=== PATIENT | female | born 1970 | race Two or more races ===

== ENCOUNTER 2016-11-13 08:02 | Emergency (ER) | payer SELFPAY ==
[2016-11-13 08:17] VITALS: BP 170/95; PULSE 82; TEMP 97.7; BMI 29.0
--- NOTE | 2016-11-13 08:20 | EDPRACDOC ---
- General Information Chief Complaint: Flu-Like Symptoms Stated Complaint: COUGH/CONGESTION Time Seen by Provider: 11/13/16 08:18 Mode Of Arrival: Walk Home Medications: Home Medications Azithromycin [Zithromax] 0 mg PO DAILY #6 tablet 10/27/13 Hydrocodone Bit/Homatropine [Hycodan Syrup] 5 ml PO Q6 PRN #120 syrup 10/27/13 Ketorolac Tromethamine [Toradol] 10 mg PO Q6H PRN #20 tab 10/27/13 Levothyroxine Sodium [Synthroid] 50 mcg PO DAILY 12/03/14 Albuterol Sulfate [Proventil Hfa] 2 puff INH Q4-6H #1 inh 12/05/14 Montelukast Sodium [Singulair] 10 mg PO HS #30 tablet 12/05/14 Nabumetone [Relafen] 500 mg PO BID #60 tab 12/05/14 Prednisone [Deltasone, Orasone] 10 mg PO DAILY #40 tablet 12/05/14 Guaifenesin/Codeine Phosphate [Cheratussin AC Syrup] 240 ml PO Q4-6H #5 liquid 12/11/14 Guaifenesin/Pseudoephedrne HCl [Mucinex D ER Tablet] 1 each PO BID #20 tab.sr.12h 12/11/14 Promethazine [Phenergan] 25 mg PO Q6-8H PRN #20 tab 12/11/14 Albuterol Sulfate [Proventil Hfa] 1 - 2 puff INH Q4H PRN 09/11/15 Beclomethasone Dipropionate [Q Tito 80] 2 puff INH BID 09/11/15 Ibuprofen Tablet [Motrin] 800 mg PO TID 09/11/15 Ketorolac Tromethamine [Toradol] 10 mg PO TID PRN #10 tab 09/11/15 Montelukast Sodium [Singulair] 10 mg PO DAILY 09/11/15 Oxycodone Immediate Release [Oxycodone Immediate Release Tablet] 5 mg PO Q4H PRN #10 tab 09/11/15 Azithromycin [Zithromax] 0 mg PO DAILY #6 tablet 11/13/16 Guaifenesin-Codeine [Robitussin AC] 10 ml PO Q6-8H 5 Days 11/13/16 Allergies/Adverse Reactions: Allergies Allergy/AdvReac Type Severity Reaction Status Date / Time Penicillins Allergy Difficulty Verified 12/11/14 03:00 Breathing - History of Present Illness Symptoms Started: 5 days Symptoms: Reports: Cough Recent Medications: Reports: None Relevant History Of: Reports: None Shortness of Breath: Mild Cough Description: Reports: Non-productive Ear Symptoms: Reports: None Associated Signs and Symptoms: Reports: Cough ED Past Medical History - History Reviewed Yes Nurses notes reviewed and agree except as marked - Patient Medical History Neurological History: Reports: Seizures Cardiac History: Reports: Syncope Respiratory History: Reports: Asthma, Pneumonia (5 times in 1 year. Uses inhalers.) Psychological History: Reports: Anxiety. Denies: Substance Use Disorder Systemic History: Reports: Hypothyroidism - Family Medical History Reports: Respiratory Disorders (son with asthma) - Social Medical History Smoking Status: Never smoker Social History: Denies: Substance Use Disorder EDM Review of Systems - Review of Systems ROS Negative Except as Marked: Yes All systems reviewed and were negative except as marked - Physical Exam Constitutional: Alert (Awake), No apparent distress Oriented to: Time, Person, Place Last recorded Vital Signs: Last Vital Signs Temp 97.7 F 11/13/16 08:12 Pulse 82 11/13/16 08:12 Resp 18 11/13/16 08:12 BP 170/95 11/13/16 08:12 Pulse Ox 97 11/13/16 08:12 Oxygen Pulse Oxygen Saturation 97 O2 Device Oxygen Flow Rate Fraction of Inspired Oxygen ( FIO2) - HEENT Head: Normal ( normocephalic) Eye Exam: Normal (PERRL, EOMI, Sclera white) Oropharynx: Normal (Pharynx:Moist without exudate,Gums-no swelling) ENT EAC: Normal TMJ: Normal Nose: No Symptoms Reported (septum midline) Neck: Normal (FROM, trachea at midline) - Respiratory/Cardiovascular Respiratory: Normal - CTA (BBS clear to auscultation without adventitious sounds ) Cardiovascular: Normal (RRR without murmur, gallop or rub) - GI Auscultation: Normal (NABS) Palpation: Normal (Soft,No rebound or guarding, non distended) Tenderness: Non tender Ulloa's Sign: Negative - Musculoskeletal Back: Normal (Non-Tender) Extremities: Normal (Normal tone, Pulses 2+ No cyanosis or edema, FROM) - Integumentary Skin: Normal, Warm, Dry Lymphatics: Normal (no adenopathy) - Neurologic Memory Impaired: Normal Motor Function: Normal (Normal tone, Pulses 2+ No cyanosis or edema, FROM) Cranial Nerve: Normal (CN II-X11 intact sensation, strength 5/5) Cerebellar: Normal Mood Description: Normal Perception: Normal Decision Time to Discharge: 08:19 - Departure Yes I personally saw and evaluated the patient. Disposition: Home Condition: Good Final Diagnosis: BRONCHITIS Instructions: Acute Bronchitis (ED) Education/Counseling Given To: Patient, Family Member Education/Counseling Given Regarding: Diagnosis, Treatment, Prognosis Referrals: None,No Provider [Primary Care Provider] - One Week Sravan Alvarez MD [Staff Physician] - One Week Prescriptions: Azithromycin [Zithromax] 0 mg PO DAILY #6 tablet Guaifenesin-Codeine [Robitussin AC] 10 ml PO Q6-8H 5 Days
== END 2016-11-13 08:41 | disposition home or self-care (01) ==
LOC: ED 08:02
DX: J40 Bronchitis, not specified as acute or chronic (principal)
CPT/HCPCS: 99282